=== PATIENT | male | born 1995 | race Caucasian/White ===

== ENCOUNTER → 2018-04-20 | Outpatient (CLI) | payer MEDICAID ==
[~2018-04-20] MED LIST: ALPR0.25 PO; AMIT25TA PO; AZIT250T PO; DEXA2TAB PO; ERYT1OIN5 EACHEYE; FENT1PAT76 TD; NICO-487 TD; OMNIPAQUE 350 MG/ML, 100ML BOTTLE ONE; ONDA4TAB13 SL; OXYC-302 PO; PANT20TA2 PO; POLY17PO5 PO; SUCR1ORA5 PO; TOPI50TA8 PO; maalox/diphenh/lido/sucralfate PO
== END | disposition home or self-care (01) ==
LOC: CFH 08:41
PROVIDERS: ATTEND Nurse Practitioner
DX: K76.0 Fatty (change of) liver, not elsewhere classified (principal); Z72.0 Tobacco use
CPT/HCPCS: 74177; Q9967